=== PATIENT | male | born 1955 ===

== ENCOUNTER 2024-02-03 05:45 | Day surgery (SDC) | payer OTHER ==
[2024-01-28 08:43] LABS: PH,URINE 5.5 (5.0-8.0); URINE APPEARANCE Cloudy; URINE BILIRRUBIN Negative (NEGATIVE); URINE BLOOD Small; URINE COLOR Yellow; URINE KETONE Negative (NEGATIVE); URINE LEUKOCYTE Negative; URINE NITRATE Negative; URINE PROTEIN 30 (NEGATIVE); URINE UROBILINOGEN 0.2 E.U./dl
[2024-01-28 08:46] LABS: HEMATOCRIT 45.5 % (39.0-48.0); MEAN CELL VOLUME 79.6 fL (80.0-100.00); MEAN CORPUSCULAR HEMOGLOBIN 26.2 pg (27.00-32.0); MEAN CORPUSCULAR HGB CONC 32.9 g/dl (32.0-36.0); PLATELET COUNT 150 K/uL (150-450); RED BLOOD COUNT 5.71 M/uL (4.00-6.00); RED CELL DISTRIBUTION WIDTH 16.5 % (11.5-14.5)
[2024-01-28 08:47] LABS: URINE BACTERIA 15.1 uL (0.0-1933); URINE EPITHELIAL CELLS 3.4 uL (0.0-38.8); URINE RBC 232.8 uL (0.0-20.8); URINE WBC 7.8 uL (0.0-23.2)
[2024-01-28 08:57] LABS: URINE CAST 0.15 uL (0.0-1.40); URINE GLUCOSE 500 MG/DL (NEGATIVE)
[2024-01-28 09:20] LABS: INR 1.06; PARTIAL THROMBOPLASTIN TIME 27.9 SECONDS (22.0-34.0); PROTHROMBIN TIME 11.5 SECONDS (9.0-11.5)
[2024-01-28 09:38] LABS: ALBUMIN 3.7 gm/dL (3.4-5.0); BILIRUBIN TOTAL 0.78 mg/dL (0.3-1.2); CALCIUM 9.1 mg/dL (8.5-10.1); CREATININE SERUM 1.12 mg/dL (0.70-1.30); POTASSIUM 4.42 mEq/L (3.5-5.1); TOTAL PROTEIN 7.7 gm/dL (6.4-8.2); TSH 2.56 uIU/mL (0.358-3.74)
[~2024-02-03 05:45] MED LIST: BAYER THERAPY325 MG; DIOVAN40 MG PO; ELIQUIS2.5 MG; FARXIGA10 MG PO; GLUMETZA1000 MG PO; ISOSORBIDE DINI30 MG PO; LASIX20 MG PO; LEVOTHYROXINE25 MCG PO; LYRICA50 MG PO; RYBELSUS3 MG PO; TOPROL XL50 M1 PO
[2024-02-03] MEDS ORDERED: CEFAZOLIN SODIUM 1,000 MG VIAL IV ONE (09:30)
[2024-02-03] MEDS ORDERED: SUGAMMADEX SODIUM 200 MG/2 ML VIAL IV ONE (09:30)
== END 2024-02-03 10:50 | disposition home or self-care (01) ==
LOC: CIR.AMB 05:45
PROVIDERS: ATTEND Surgery
DX: K80.10 Calculus of gallbladder with chronic cholecystitis without obstruction (principal); E11.9 Type 2 diabetes mellitus without complications; I10 Essential (primary) hypertension; E78.5 Hyperlipidemia, unspecified

== ENCOUNTER 2024-12-26 09:12 | Outpatient (CLI) | payer OTHER | END 2024-12-26 09:18 | disposition home or self-care (01) | LOC: TOM 09:12 | PROVIDERS: ATTEND Internal Medicine | DX: R19.5 Other fecal abnormalities (principal); Z12.11 Encounter for screening for malignant neoplasm of colon ==